=== PATIENT | female | born 1970 | race Hispanic/Latino ===

== ENCOUNTER 2018-06-27 11:32 | Outpatient (CLI) | payer BC ==
--- NOTE | 2018-06-27 12:16 | RAD ---
RIGHT KNEE TWO VIEWS: HISTORY: Knee pain. FINDINGS: Marked arthritic changes of the knee. There is some moderate medial compartment narrowing. There is spur formation of all three compartments. No joint effusion. No fractures. IMPRESSION: Moderately severe osteoarthritic changes of the knee. POS: [facility]
--- NOTE | 2018-06-27 12:16 | RAD ---
LEFT KNEE 2 VIEWS: HISTORY: Knee pain. FINDINGS: There are mild osteoarthritic changes of the knee mainly related to some mild to moderate medial comp artment narrowing. Small spurs are seen involving the patellofemoral and lateral compartments. No j oint effusion or fracture. IMPRESSION: Mild osteoarthritic changes of the left knee. POS: [facility]
--- NOTE | 2018-06-27 12:18 | RAD ---
CHEST TWO VIEWS: History: Inflammatory polyarthropathy. Comparison: 09-08-14 FINDINGS: Heart size is within normal limits. Mediastinal structures appear unremarkable. The lungs are clear o f infiltrate. No interstitial fibrotic lung change. No pleural effusions. No bony findings other than some minimal osteoarthritic changes of the spine. IMPRESSION: No active intrathoracic disease. POS: [facility]
== END 2018-06-27 11:33 | disposition home or self-care (01) ==
LOC: BICRAD 11:32
PROVIDERS: ATTEND Internal Medicine Rheumatology
DX: M17.0 Bilateral primary osteoarthritis of knee (principal); M06.4 Inflammatory polyarthropathy
CPT/HCPCS: 71046

== ENCOUNTER 2018-07-02 09:15 | Day surgery (SDC) | payer BC ==
[2018-07-02] MEDS ORDERED: Bupivacaine 0.5% 10 ML VIAL ONE (10:26)
[2018-07-02] MEDS ORDERED: Lidocaine 1% (PF) 30 ML VIAL ONE (10:26)
--- NOTE | 2018-07-02 10:51 | RAD ---
RIGHT THUMB 3 VIEWS: Date: 07/02/18 HISTORY: Pain. COMPARISON: None. FINDINGS: There appears to be a small chip fracture along the radial margin of the thumb interphalangeal joint at the distal phalanx base. Moderate soft tissue swelling. IMPRESSION: Age-indeterminate chip fracture along the radial margin of the distal phalanx base of thumb. POS: [facility]
[2018-07-02 12:42] LABS: #Basophils 0.1 thou/uL (0.0-0.2); #Eosinphils 0.2 thou/uL (0.0-0.7); #Lymphocytes 3.2 thou/uL (1.20-3.40); #Monocytes 0.7 thou/uL (0.11-0.59); #Neutrophils 8.6 thou/uL (1.40-6.50); %Basophils 0.7 % (0.0-1.0); %Eosinophils 1.4 % (0.0-10.0); %Lymphocytes 24.7 % (21.0-51.0); %Monocytes 5.5 % (0.0-10.0); %Neutrophils 67.7 % (42.0-75.0); Hemoglobin 15.1 g/dL (12.0-16.0); Mean Corpuscular HGB CONC 31.9 g/dL (32.0-36.0); Mean Corpuscular Hemoglobin 27.6 pg (27.0-31.0); Mean Corpuscular Volume 86.4 fL (78.0-98.0); Mean Platelet Volume 6.6 fL (7.4-10.4); Platelet Count 372 thou/uL (130-400); RBC Distribution Width 13.1 % (11.5-14.5); Red Blood Cell (RBC) Count 5.49 mill/uL (4.20-5.40); White Blood Cell (WBC) Count 12.8 thou/uL (4.8-10.8)
[2018-07-02] MEDS ORDERED: Morphine 4 MG/ML VIAL ONE (12:54)
[2018-07-02] MEDS ORDERED: Ondansetron PF 4 MG/2 ML Vial ONE ×2 (12:54→15:23)
[2018-07-02 12:57] LABS: ALT (SGPT) 11 U/L (8-55); AST (SGOT) 14 U/L (5-34); Albumin 4.6 g/dL (3.5-5.0); Alkaline Phosphatase 101 U/L (40-150); Anion Gap 12 mmol/L (10-20); BUN (Urea Nitrogen) 13 mg/dL (7.0-18.7); Bilirubin, Total 0.4 mg/dL (0.2-1.2); Calc. Creatinine Clearance 0 mL/min (70-130); Calcium 9.9 mg/dL (7.8-10.44); Carbon Dioxide 27 mmol/L (22-29); Chloride 102 mmol/L (98-107); Estimated GFR-MDRD 81; Globulin 3.3 g/dL (2.4-3.5); Glucose 88 mg/dL (70-105); Potassium 3.6 mmol/L (3.5-5.1); Protein, Total 7.9 g/dL (6.0-8.3); Sodium 137 mmol/L (136-145)
[2018-07-02 13:01] LABS: BHCG - Serum Negative (NEGATIVE); Pregs Control Background? CLEAR/WHITE (CLR/WHITE); Pregs Control Bar Appear? YES (CONTROL BAR)
[2018-07-02] MEDS ORDERED: Lidocaine 1% PF 5 ML VIAL ONE (15:23)
[2018-07-02] MEDS ORDERED: PROPOFOL 200 MG/20 ML VIAL ONE (15:23)
[2018-07-02] MEDS ORDERED: Dexamethasone 20 MG/5 ML VIAL ONE (15:23)
[2018-07-02] MEDS ORDERED: Bacitracin Zinc Ointment 30 gm TUBE ONE (16:03)
[2018-07-02] MEDS ORDERED: Bupivacaine PF 0.5% 30 ML VIAL ONE (16:03)
[2018-07-02] MEDS ORDERED: Sodium Chloride 0.9% 10 ML ONE (16:03)
[2018-07-02] MEDS ORDERED: Fentanyl 100 MCG/2 ML VIAL ONE ×2 (16:16→16:46)
[2018-07-02] MEDS ORDERED: Midazolam HCl 2 mg/2 ml Vial ONE (16:46)
[2018-07-02] MEDS ORDERED: Ketorolac Tromethamine 30 MG/ML VIAL ONE (18:26)
--- NOTE | 2018-07-02 21:47 | OP ---
DATE OF PROCEDURE: 07/02/2018 PREOPERATIVE DIAGNOSES: 1. Right thumb abscess subungual. 2. Right thumb ingrown nail. 3. Right thumb felon. PROCEDURES PERFORMED: 1. Drainage of complex abscess, right thumb. 2. Removal of nail, right thumb. TOURNIQUET TIME: 7 minutes. ESTIMATED BLOOD LOSS: Less than or equal to 10 mL. COMPLICATIONS: None. SPECIMEN SENT: Yes, the nail itself after full removal of nail, two cultures of the subungual abscess and of the pulp space pre-irrigation. INDICATIONS: The patient with 3-day history of progressive thumb pain. Primarily, the patient had a felon paronychia and ingrown nail and a nail that had previous acrylic nail. DESCRIPTION OF PROCEDURE: After successful anesthesia listed above, limb was prepped and draped. Time-out was done appropriately. We injected with 10 mL of 0.5% Marcaine in the standard metacarpophalangeal joint block level technique. We then immediately put a [place] under the nail on the radial side, where she had edema, swelling, erythema, and tenderness and purulence escaped. We slowly removed the nail because it was quite adherent to the underlying nail bed probably because of the patient's history of use of acrylic nail. Then, we continued to debride the nail and the wound using the following technique, instrumentation; 1. Curette small, 11-blade knife, Nikolai blade, Crile's and hemostats, both small tip, and irrigation. 2. Excisional technique to include removal of nail. 3. Cultures were taken. There was gross purulence in the pulp space, but much less purulence here than it was just under the nail itself. Once we had finished the debridement, we then irrigated the pulse space with 100 mL of normal saline using a bulb syringe and Angiocath making 1 cm incision, 5 mm from the dorsal radial edge of the paronychial region and we also made a hole in the junction of the nail fold and the lateral sidewall of the skin. Then, we irrigated the area where the nail had the subungual infection noted. She lost about a 1 x 1 mm area of nail bed that was gone. We then released the tourniquet, obtained excellent hemostasis, packed the placed Adaptic, bacitracin over the nail area and held until we had hemostasis. We covered this with 4x4s, Melina, and gently loosely applied green Coban. She then went from the operating room to recovery room without evidence of anesthetic or operative complication. Job ID: [id number]
== END 2018-07-02 20:25 | disposition home or self-care (01) ==
LOC: ERS 09:15 → SDC 12:42
PROVIDERS: ATTEND Orthopaedic Surgery Hand Surgery
PROC: 0HBQXZZ Excision of Finger Nail, External Approach (ICD-10-PCS; principal; 2018-07-02)
DX: L03.011 Cellulitis of right finger (principal); L60.0 Ingrowing nail; S62.521A Displaced fracture of distal phalanx of right thumb, initial encounter for closed fracture; Z90.49 Acquired absence of other specified parts of digestive tract; Z79.84 Long term (current) use of oral hypoglycemic drugs; Z79.899 Other long term (current) drug therapy; Z98.890 Other specified postprocedural states
CPT/HCPCS: 80053; 84703; 85025; 85652; 86140; 87070; 87077; 87205; J1100; J1885; J2001; J2250; J2270; J2405; J2704; J3010; J3370; J3490; S0020

== ENCOUNTER 2019-05-28 09:15 | Outpatient (CLI) | payer BC ==
--- NOTE | 2019-05-28 10:57 | MRI ---
EXAM: MRI of the brain without and with contrast HISTORY: Possible concussion. Dizziness and abnormal gait after a fall COMPARISON: 05/10/2013 TECHNIQUE: Multiplanar multisequence MR images were obtained of the brain without and with IV contras t. FINDINGS: The brain demonstrates normal signal intensity on all obtained sequences. No restricted diffusion. No abnormal enhancement. No hydronephrosis. No extra-axial fluid collection or intracranial hemorrhage. The expected flow voids are present. Corpus callosum, pituitary, and craniocervical junction are within normal limits. The calvarium and overlying soft tissues are unremarkable. The paranasal sinuses and mastoid air cells are well aerated. IMPRESSION: No evidence of acute intracranial abnormality.
[2019-05-28] MEDS ORDERED: Magnevist 469MG/ML 20 ML VIAL ONE (14:30)
== END 2019-05-28 09:16 | disposition home or self-care (01) ==
LOC: BICMRI 09:15
PROVIDERS: ATTEND Psychiatry & Neurology Sleep Medicine
DX: R42 Dizziness and giddiness (principal)
CPT/HCPCS: 70553; 82565; A9579

== ENCOUNTER 2021-03-09 10:46 | Emergency (ER) | payer BC ==
[~2021-03-09 10:46] MED LIST: Iopamidol-370 76% 500 ML 1 ML ONE
[2021-03-09 12:05] LABS: #Basophils 0.1 thou/uL (0.0-0.2); #Eosinphils 0.2 thou/uL (0.0-0.7); #Lymphocytes 2.5 thou/uL (1.20-3.40); #Monocytes 0.6 thou/uL (0.11-0.59); #Neutrophils 5.6 thou/uL (1.40-6.50); %Basophils 0.8 % (0.0-1.0); %Eosinophils 2.1 % (0.0-10.0); %Lymphocytes 28.2 % (21.0-51.0); %Monocytes 6.7 % (0.0-10.0); %Neutrophils 62.2 % (42.0-75.0); Hemoglobin 14.4 g/dL (12.0-16.0); Mean Corpuscular Hemoglobin 27.3 pg (27.0-31.0); Mean Corpuscular Volume 85.4 fL (78.0-98.0); Mean Platelet Volume 6.2 fL (7.4-10.4); Platelet Count 343 thou/uL (130-400); RBC Distribution Width 13.1 % (11.5-14.5); Red Blood Cell (RBC) Count 5.25 mill/uL (4.20-5.40); White Blood Cell (WBC) Count 8.9 thou/uL (4.8-10.8)
[2021-03-09 12:37] LABS: ALT (SGPT) 15 U/L (8-55); AST (SGOT) 16 U/L (5-34); Albumin 4.3 g/dL (3.5-5.0); Alkaline Phosphatase 102 U/L (40-110); Anion Gap 10 mmol/L (10-20); BUN (Urea Nitrogen) 13 mg/dL (7.0-18.7); Bilirubin, Total 0.3 mg/dL (0.2-1.2); Calc. Creatinine Clearance 0 mL/min (70-130); Calcium 9.6 mg/dL (7.8-10.44); Carbon Dioxide 25 mmol/L (22-29); Chloride 102 mmol/L (98-107); Globulin 3.1 g/dL (2.4-3.5); Glucose 104 mg/dL (70-105); Lipase 33 U/L (8-78); Potassium 3.3 mmol/L (3.5-5.1); Protein, Total 7.4 g/dL (6.0-8.3); Sodium 134 mmol/L (136-145)
[2021-03-09 13:18] LABS: Pregnancy Test - Urine (BHCG) Negative (Negative); Pregu Control Background? CLEAR/WHITE (CLR/WHITE); Pregu Control Bar Appear? YES (CONTROL BAR); Specific Gravity 1.005 (1.002-1.036)
[2021-03-09] MEDS ORDERED: Potassium Chloride 20 MEQ TAB ONE (13:24)
[2021-03-09] MEDS ORDERED: Morphine 4 MG/ML VIAL ONE (13:32)
[2021-03-09] MEDS ORDERED: Ondansetron PF 4 MG/2 ML Vial ONE (13:32)
[2021-03-09 13:40] LABS: Bilirubin Negative (Negative); Blood, Urine Negative (Negative); Clarity Clear (Clear); Glucose, Urine (Dipstick) Normal (Negative); Ketone, Urine Negative (Negative); Leukocyte Negative Leu/uL (Negative); Nitrite Negative (Negative); Protein, Urine (Dipstick) Negative (Neg-Trace); Specific Gravity, Urine 1.006 (1.002-1.036); Urobilinogen Normal mg/dL (Less than 2)
== END 2021-03-09 15:00 | disposition home or self-care (01) ==
LOC: ERS 10:46
DX: K50.00 Crohn's disease of small intestine without complications (principal); K76.89 Other specified diseases of liver; E87.6 Hypokalemia; E11.9 Type 2 diabetes mellitus without complications; E03.9 Hypothyroidism, unspecified; I10 Essential (primary) hypertension; Z86.73 Personal history of transient ischemic attack (TIA), and cerebral infarction without residual deficits; Z79.84 Long term (current) use of oral hypoglycemic drugs; Z79.899 Other long term (current) drug therapy
CPT/HCPCS: 36415; 71045; 74177; 80053; 81003; 81025; 83690; 84484; 85025; 93005; 96374; 96375; J2270; J2405; Q9967

== ENCOUNTER 2021-03-31 08:20 | Observation (INO) | payer BC ==
[2021-03-31 09:15] LABS: #Basophils 0.1 thou/uL (0.0-0.2); #Eosinphils 0.5 thou/uL (0.0-0.7); #Monocytes 0.6 thou/uL (0.11-0.59); #Neutrophils 6.2 thou/uL (1.40-6.50); %Basophils 0.9 % (0.0-1.0); %Eosinophils 5.7 % (0.0-10.0); %Lymphocytes 21.1 % (21.0-51.0); %Monocytes 6.7 % (0.0-10.0); %Neutrophils 65.7 % (42.0-75.0); Hemoglobin 14.9 g/dL (12.0-16.0); Mean Corpuscular HGB CONC 33.8 g/dL (32.0-36.0); Mean Corpuscular Hemoglobin 29.2 pg (27.0-31.0); Mean Corpuscular Volume 86.4 fL (78.0-98.0); Mean Platelet Volume 6.7 fL (7.4-10.4); Platelet Count 294 thou/uL (130-400); RBC Distribution Width 13.3 % (11.5-14.5); Red Blood Cell (RBC) Count 5.11 mill/uL (4.20-5.40); White Blood Cell (WBC) Count 9.4 thou/uL (4.8-10.8)
[2021-03-31] MEDS ORDERED: Iopamidol-370 76% 500 ML 1 ML ONE (09:31)
[2021-03-31 09:32] LABS: ALT (SGPT) 20 U/L (8-55); AST (SGOT) 18 U/L (5-34); Albumin 4.2 g/dL (3.5-5.0); Alkaline Phosphatase 86 U/L (40-110); Anion Gap 12 mmol/L (10-20); BUN (Urea Nitrogen) 13 mg/dL (7.0-18.7); Bilirubin, Total 0.4 mg/dL (0.2-1.2); Calc. Creatinine Clearance 0 mL/min (70-130); Calcium 9.5 mg/dL (7.8-10.44); Carbon Dioxide 27 mmol/L (22-29); Chloride 104 mmol/L (98-107); Globulin 2.7 g/dL (2.4-3.5); Glucose 68 mg/dL (70-105); Lipase 29 U/L (8-78); Potassium 3.7 mmol/L (3.5-5.1); Protein, Total 6.9 g/dL (6.0-8.3); Sodium 139 mmol/L (136-145)
[2021-03-31] MEDS ORDERED: Aspirin Chewable 81 MG TAB ONE (09:52)
[2021-03-31 12:13] LABS: Troponin I Less than 0.010 ng/mL (< 0.028)
[2021-03-31] MEDS ORDERED: Nicotine 14 MG PATCH TD SCH (12:15)
[2021-03-31 13:16] LABS: Hemoglobin A1c 5.3 % (4.0-6.0)
[2021-03-31 13:59] LABS: SARS-CoV-2 NAA Rapid Test Not Detected (NotDetected)
[2021-03-31 14:21] LABS: Pregnancy Test - Urine (BHCG) Negative (Negative); Pregu Control Background? CLEAR/WHITE (CLR/WHITE); Pregu Control Bar Appear? YES (CONTROL BAR); Specific Gravity Greater than 1.060 (1.002-1.036)
[2021-03-31] MEDS: Nicotine 7 MG PATCH TD SCH (14:38)
[2021-03-31 15:05] LABS: Troponin I Less than 0.010 ng/mL (< 0.028)
[2021-03-31] MEDS ORDERED: FLU VACC QS2021-22(6MOS UP)/PF 60 MCG/0.5 ML SYRINGE IM ONE (15:30)
[2021-03-31 20:33] LABS: Magnesium 1.9 mg/dL (1.6-2.6)
[2021-03-31] MEDS ORDERED: Melatonin 3 MG TAB PO PRN (20:36)
[2021-04-01 05:55] LABS: Cardiac Risk 3.5 (Less than 4.5)
[2021-04-01] MEDS ORDERED: Levothyroxine Sodium 50 MCG TAB PO SCH (06:00)
[2021-04-01] MEDS ORDERED: ADENOSINE 60 MG/20 ML VIAL ONE (08:52)
[2021-04-01] MEDS ORDERED: Enoxaparin Sodium 40 MG/0.4 ML SYRINGE SC SCH (09:00)
[2021-04-01] MEDS ORDERED: Triamterene/Hydrochlorothiazide 37.5 mg/25 mg Tablet PO SCH (09:00)
[2021-04-01] MEDS ORDERED: Aspirin Chewable 81 MG TAB PO SCH (09:00)
[2021-04-01] MEDS ORDERED: Enoxaparin Sodium 30 MG/0.3 ML SYRINGE SC SCH (09:00)
[2021-04-01 12:11] VITALS: BP 178/92; TEMP 97.8
[2021-04-01] MEDS: Nicotine 7 MG PATCH TD SCH (13:39)
[2021-04-01 13:50] VITALS: BMI 32.8
[2021-04-05] MEDS ORDERED: Ergocalciferol 1.25 MG(50,000 UNITS) CAP PO SCH (09:00)
== END 2021-04-01 16:22 | disposition home or self-care (01) ==
LOC: ERS 08:20 → ERHOLD 11:20 → 2SE 11:32
PROVIDERS: ADMIT Family Medicine; ATTEND Family Medicine
DX: R07.89 Other chest pain (principal); R73.03 Prediabetes; E03.9 Hypothyroidism, unspecified; I10 Essential (primary) hypertension; E55.9 Vitamin D deficiency, unspecified; F17.210 Nicotine dependence, cigarettes, uncomplicated; Z79.84 Long term (current) use of oral hypoglycemic drugs; Z79.899 Other long term (current) drug therapy; Z20.822 Contact with and (suspected) exposure to COVID-19
CPT/HCPCS: 36415; 71045; 71275; 78452; 80053; 80061; 81025; 83036; 83690; 83735; 84100; 84443; 84484; 85025; 85379; 90471; 90686; 93005; 93017; 96372; A9500; G0008; G0378; J0153; J1650; Q9967; U0002

== ENCOUNTER 2021-05-10 14:54 | Emergency (ER) | payer BC ==
[2021-05-10 15:44] LABS: #Basophils 0.1 thou/uL (0.0-0.2); #Eosinphils 0.2 thou/uL (0.0-0.7); #Lymphocytes 2.4 thou/uL (1.20-3.40); #Monocytes 0.5 thou/uL (0.11-0.59); #Neutrophils 6.1 thou/uL (1.40-6.50); %Basophils 0.7 % (0.0-1.0); %Eosinophils 2.4 % (0.0-10.0); %Lymphocytes 25.6 % (21.0-51.0); %Neutrophils 66.3 % (42.0-75.0); Hemoglobin 14.5 g/dL (12.0-16.0); Mean Corpuscular HGB CONC 33.2 g/dL (32.0-36.0); Mean Corpuscular Hemoglobin 28.6 pg (27.0-31.0); Mean Platelet Volume 5.9 fL (7.4-10.4); Platelet Count 343 thou/uL (130-400); RBC Distribution Width 13.2 % (11.5-14.5); Red Blood Cell (RBC) Count 5.07 mill/uL (4.20-5.40); White Blood Cell (WBC) Count 9.3 thou/uL (4.8-10.8)
[2021-05-10 16:07] LABS: ALT (SGPT) 15 U/L (8-55); AST (SGOT) 19 U/L (5-34); Albumin 4.5 g/dL (3.5-5.0); Alkaline Phosphatase 87 U/L (40-110); Anion Gap 14 mmol/L (10-20); BUN (Urea Nitrogen) 11 mg/dL (7.0-18.7); Bilirubin, Total 0.3 mg/dL (0.2-1.2); Calc. Creatinine Clearance 0 mL/min (70-130); Carbon Dioxide 28 mmol/L (22-29); Chloride 99 mmol/L (98-107); Globulin 3.5 g/dL (2.4-3.5); Glucose 96 mg/dL (70-105); Lipase 22 U/L (8-78); Potassium 3.5 mmol/L (3.5-5.1); Sodium 137 mmol/L (136-145)
== END 2021-05-10 19:58 | disposition home or self-care (01) ==
LOC: ERS 14:54
DX: R42 Dizziness and giddiness (principal); H65.91 Unspecified nonsuppurative otitis media, right ear; E11.9 Type 2 diabetes mellitus without complications; E03.9 Hypothyroidism, unspecified; I10 Essential (primary) hypertension; F17.210 Nicotine dependence, cigarettes, uncomplicated; Z86.73 Personal history of transient ischemic attack (TIA), and cerebral infarction without residual deficits
CPT/HCPCS: 36415; 70450; 71045; 80053; 83690; 84484; 85025; 93005

== ENCOUNTER 2022-03-12 23:24 | Emergency (ER) | payer BC | END 2022-03-13 02:10 | disposition home or self-care (01) | LOC: ERS 23:24 | DX: F10.129 Alcohol abuse with intoxication, unspecified (principal); F17.210 Nicotine dependence, cigarettes, uncomplicated; I10 Essential (primary) hypertension; E03.9 Hypothyroidism, unspecified; Z86.73 Personal history of transient ischemic attack (TIA), and cerebral infarction without residual deficits | CPT/HCPCS: 70450; 72125 ==

== ENCOUNTER 2023-03-20 13:45 | Emergency (ER) | payer BC ==
[~2023-03-20 13:45] MED LIST changes: -Iopamidol-370 76% 500 ML 1 ML ONE; +Iopamidol-370 76% 500 ML MDV (1 ML CHARGE) ONE
[2023-03-20 14:32] LABS: #Eosinphils 0.1 thou/uL (0.0-0.7); #Monocytes 0.4 thou/uL (0.11-0.59); #Neutrophils 6.8 thou/uL (1.40-6.50); %Basophils 0.2 % (0.0-1.0); %Lymphocytes 12.1 % (21.0-51.0); %Monocytes 4.4 % (0.0-10.0); %Neutrophils 81.9 % (42.0-75.0); Hematocrit 41.9 % (36.0-47.0); Hemoglobin 14.1 g/dL (12.0-16.0); Mean Corpuscular HGB CONC 33.7 g/dL (32.0-36.0); Mean Corpuscular Hemoglobin 29.3 pg (27.0-31.0); Mean Corpuscular Volume 87.1 fl (78.0-98.0); Mean Platelet Volume 8.5 fL (7.4-10.4); Platelet Count 240 10x3/uL (130-400); RBC Distribution Width 13.4 % (11.5-14.5); Red Blood Cell (RBC) Count 4.81 mill/uL (4.20-5.40); White Blood Cell (WBC) Count 8.3 10x3/uL (4.8-10.8)
[2023-03-20 14:58] LABS: ALT (SGPT) 32 U/L (8-55); AST (SGOT) 43 U/L (5-34); Albumin 3.9 g/dL (3.5-5.0); Alkaline Phosphatase 108 U/L (40-110); Anion Gap 13 mmol/L (10-20); BUN (Urea Nitrogen) 11 mg/dL (7.0-18.7); Bilirubin, Total 0.4 mg/dL (0.2-1.2); Calc. Creatinine Clearance 0 mL/min (70-130); Calcium 8.4 mg/dL (7.8-10.44); Carbon Dioxide 19 mmol/L (22-29); Chloride 106 mmol/L (98-107); Estimated GFR 107; Globulin 2.4 g/dL (2.4-3.5); Glucose 98 mg/dL (70-105); Lipase 29 U/L (8-78); Potassium 2.9 mmol/L (3.5-5.1); Protein, Total 6.3 g/dL (6.0-8.3); Sodium 135 mmol/L (136-145)
[2023-03-20 15:03] LABS: Troponin I Less than 0.010 ng/mL (< 0.028)
[2023-03-20] MEDS ORDERED: Potassium Chloride 20 MEQ TAB ONE ×3 (15:37→16:59)
[2023-03-20] MEDS ORDERED: Magnesium 2 GM/50 ML BAG (IN WATER) ONE (15:39)
[2023-03-20 16:24] LABS: Bacteria/HPF None Seen HPF (None Seen); Bilirubin Negative (Negative); Blood, Urine Negative (Negative); CAUTI Indications for Culture Alt mental st,lethar; Clarity Clear (Clear); Glucose, Urine (Dipstick) Normal (Negative); Ketone, Urine Negative (Negative); Leukocyte Negative Leu/uL (Negative); Nitrite Negative (Negative); Protein, Urine (Dipstick) Negative (Neg-Trace); RBC/HPF 0-3 HPF (0-3); Specific Gravity, Urine 1.014 (1.002-1.036); Squamous Epithelial 0-3 HPF (0-3); Urobilinogen Normal mg/dL (Less than 2); WBC/HPF 0-3 HPF (0-3); pH, Urine 5.5 (5.0-9.0)
[2023-03-20 16:38] LABS: Urine Culture Reflex No No
[2023-03-20] MEDS ORDERED: Potassium Bicarbonate/Cit Ac 20 MEQ TAB ONE (16:40)
== END 2023-03-20 17:05 | disposition home or self-care (01) ==
LOC: ERS 13:45
DX: E86.0 Dehydration (principal); E87.6 Hypokalemia; E11.9 Type 2 diabetes mellitus without complications; I10 Essential (primary) hypertension; E03.9 Hypothyroidism, unspecified; F17.210 Nicotine dependence, cigarettes, uncomplicated; Z79.84 Long term (current) use of oral hypoglycemic drugs; Z79.899 Other long term (current) drug therapy
CPT/HCPCS: 36416; 71045; 74177; 80053; 81001; 83690; 84484; 85025; 93005; 96361; 96365; J3475; Q9967